=== PATIENT | female | born 1935 | race Caucasian/White ===

== ENCOUNTER → 2016-08-22 | Outpatient (CLI) | payer MEDICARE ==
--- NOTE | 2016-08-22 14:39 | REP ---
CHEST X-RAY: Two views. HISTORY: COPD. Cough for 1 week. Comparison radiographs are from June 30, 2006. FINDINGS: The heart size is borderline with cardiothoracic ratio 13.3 cm/26.4 cm. Pulmonary vasculature is somewhat congested. There are a few Michelle B lines in the bases. No pleural effusion or pulmonary edema is seen. No focal infiltrate is seen. No bony destructive lesion is seen. IMPRESSION: Borderline heart size, pulmonary vascular congestion and Michelle B lines consistent with CHF pattern.
== END ==
LOC: M CLY 14:13
PROVIDERS: ATTEND Nurse Practitioner
DX: J44.9 Chronic obstructive pulmonary disease, unspecified (principal)
CPT/HCPCS: 71020; G0463

== ENCOUNTER → 2019-04-12 | Outpatient (REF) | payer MEDICARE | LOC: M SFHCPLAZ 16:48 | PROVIDERS: ATTEND Dermatology | DX: C44.41 Basal cell carcinoma of skin of scalp and neck (principal) ==

== ENCOUNTER → 2019-06-18 | Outpatient (REF) | payer MEDICARE | LOC: M LAB REF 18:23 | PROVIDERS: ATTEND Dermatology | DX: C44.41 Basal cell carcinoma of skin of scalp and neck (principal) ==